=== PATIENT | male | born 1950 ===

== ENCOUNTER 2018-04-11 10:37 | Emergency (ER) | payer MEDICARE, BC ==
[2018-04-11 10:50] VITALS: BP 141/92
--- NOTE | 2018-04-11 10:57 | UC ---
Respiratory Complaint HPI - HPI Summary HPI Summary: A 68 y/o M presents to [facility] [place] with productive cough onset 03/31/18. Phlegm is green, sometimes yellow, colored. The cough is worse at evening. Denies CP, SOB. No PMHx: PNA. Patient has received PNA immunization shot. Non-smoker. Allergies noted. 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 Negative: Fever, Chills - Allergies/Home Medications Allergies/Adverse Reactions: Allergies Allergy/AdvReac Type Severity Reaction Status Date / Time cat dander Allergy Rash Verified 04/11/18 10:50 sulfamethoxazole Allergy Rash Verified 04/11/18 10:49 [From Bactrim] trimethoprim [From Bactrim] Allergy Rash Verified 04/11/18 10:49 tree pollen Allergy Rash Uncoded 04/11/18 10:50 Home Medications: Home Medications Simvastatin [Zocor] 40 mg PO DAILY 04/11/18 [History Confirmed 04/11/18] PMH/Surg Hx/FS Hx/Imm Hx Previously Healthy: Yes Endocrine History: Other Other Endocrine History: neg: DM GI/ History: Diverticulitis - Surgical History Surgical History: Yes Surgery Procedure, Year, and Place: multiple - Family History Known Family History: Positive: Cardiac Disease - grandmother [place], Hypertension, Diabetes, Respiratory Disease - sister: severe asthma - Social History Occupation: Retired Lives: With Family Alcohol Use: Daily Substance Use Type: None Smoking Status (MU): Never Smoked Tobacco Review of Systems Constitutional: Negative Respiratory: Cough Gastrointestinal: Negative All Other Systems Reviewed And Are Negative: Yes Physical Exam - Summary Physical Exam Summary: VITAL SIGNS: Reviewed. GENERAL: Patient is a well-developed and nourished MALE who is lying comfortable in the stretcher. Patient is not in any acute respiratory distress. HEAD AND FACE: Normocephalic EYES: PERRLA, EOMI x 2. EARS: Hearing grossly intact. MOUTH: Oropharynx within normal limits. NECK: Supple, trachea is midline, no adenopathy, no JVD, no carotid bruit. CHEST: Symmetric, no tenderness at palpation LUNGS: Clear to auscultation bilaterally. No wheezing or crackles. CVS: Regular rate and rhythm, S1 and S2 present, no murmurs or gallops appreciated. ABDOMEN: Soft, non-tender. Bowel sounds are normal. No abdominal abnormal pulsations. EXTREMITIES: Full ROM in all major joints, no edema, no cyanosis or clubbing. NEURO: Alert and oriented x 3. No acute neurological deficits. Speech is normal and follows commands. SKIN: Dry and warm Triage Information Reviewed: Yes Vital Signs: Initial Vital Signs Temp 98 F 04/11/18 10:46 Pulse 73 04/11/18 10:46 Resp 16 04/11/18 10:46 BP 141/92 04/11/18 10:46 Pulse Ox 98 04/11/18 10:46 Vital Signs Reviewed: Yes Diagnostic Evaluation - Laboratory O2 Sat by Pulse Oximetry: 98 - Radiology Xray Interpretation: Positive (See Comments) - IMPRESSION: PATCHY AIRSPACE DISEASE OF THE RIGHT MIDDLE LOBE NEAR THE CARDIOPHRENIC ANGLE. RECOMMEND FOLLOW- UP UNTIL RESOLUTION TO EXCLUDE UNDERLYING PULMONARY PARENCHYMAL PATHOLOGY. Radiology Interpretation Completed By: Radiologist - Report has been reviewed by provider. Respiratory Course/Dx - Course Course Of Treatment: Blood pressure over 120/80: The patient was found to have increased BP in UC. The patient will follow up with PCP for better control of BP. Chest x-ray impression: Positive consolidations significant for pneumonia. Patient given a prescription for azithromycin. He will follow with primary care physician in next couple days. Patient is hemodynamically stable alert and oriented 3. - Differential Dx/Diagnosis Provider Diagnoses: Pneumonia Discharge - Sign-Out/Discharge Documenting (check all that apply): Patient Departure - D/C - Discharge Plan Condition: Stable Disposition: HOME Prescriptions: Azithromycin TAB* [Zithromax TAB (Z-MAURO) 250 mg #6 tabs] 2 tab PO .TODAY, THEN 1 DAILY #1 mauro Patient Education Materials: Community Acquired Pneumonia (ED) Referrals: No Primary Care Phys,NOPCP [Primary Care Provider] - [facility] [place] [facility]IAN REFERRAL [Outside] Additional Instructions: FOLLOW UP WITH YOUR PRIMARY CARE PROVIDER WITHIN ONE WEEK FOR HIGH BLOOD PRESSURE NOTED TODAY. RETURN TO (URGENT CARE OR THE ED) FOR ANY WORSENING OR NEW SYMPTOMS. - Billing Disposition and Condition Condition: STABLE Disposition: Home
--- NOTE | 2018-04-11 11:35 | RAD ---
HISTORY: productive cough COMPARISONS: None VIEWS: 4: Frontal dual-energy and lateral views of the chest. FINDINGS: CARDIOMEDIASTINAL SILHOUETTE: The cardiomediastinal silhouette is normal. PAIGE: The paige are normal. PLEURA: The costophrenic angles are sharp. No pleural abnormalities are noted. LUNG PARENCHYMA: There is patchy alveolar opacification of the right middle lobe near the phrenic angle. ABDOMEN: The upper abdomen is clear. There is no subphrenic gas. BONES AND SOFT TISSUES: No bone or soft tissue abnormalities are noted. OTHER: None. IMPRESSION: PATCHY AIRSPACE DISEASE OF THE RIGHT MIDDLE LOBE NEAR THE CARDIOPHRENIC ANGLE. RECOMMEND FOLLOW-UP UNTIL RESOLUTION TO EXCLUDE UNDERLYING PULMONARY PARENCHYMAL PATHOLOGY.
== END 2018-04-11 11:40 | disposition home or self-care (01) ==
LOC: UCEAST 10:37
DX: J18.9 Pneumonia, unspecified organism (principal); E11.9 Type 2 diabetes mellitus without complications; K57.92 Diverticulitis of intestine, part unspecified, without perforation or abscess without bleeding; Z88.2 Allergy status to sulfonamides; Z82.49 Family history of ischemic heart disease and other diseases of the circulatory system; Z83.3 Family history of diabetes mellitus; Z82.5 Family history of asthma and other chronic lower respiratory diseases
CPT/HCPCS: 71046; 99202; G0463